=== PATIENT | female | born 1980 | race African-American/Black ===

== ENCOUNTER 2016-10-15 13:50 | Inpatient (IN) | payer OTHER ==
[2016-10-15 15:26] VITALS: BMI 30.7
[2016-10-15] MEDS ORDERED: ELECTROLYTE-148 SOLN 1,000 ML IV SCH ×2 (15:30→18:00)
[2016-10-15] MEDS ORDERED: AMPICILLIN - 100 ML IVPB ONE (15:30)
[2016-10-15 16:46] LABS: BASOPHIL 0.2 % (0-2.0); EOSINOPHIL 0.4 % (0-4.5); MCH 26.5 pg (25.7-33.7); MCHC 33.9 g/dl (32.0-36.0); MEAN CELL VOLUME 78.4 fl (80-96); MEAN PLT VOLUME 8.6 fl (7.5-11.1); NEUTROPHILS 80.2 % (42.8-82.8); PLATELET COUNT 271 K/MM3 (134-434); RDW 16.4 % (11.6-15.6); WHITE BLOOD COUNT 10.8 K/mm3 (4.0-10.0)
[2016-10-15 16:59] LABS: INR 0.94 (0.82-1.09); PROTHROMBIN TIME (PATIENT) 10.3 SEC (9.98-11.88)
[2016-10-15 17:02] LABS: ACTIVATED PTT 28.7 SECONDS (26.9-34.4)
[2016-10-15 17:26] LABS: ANION GAP 10 (8-16); CO2 25 mmol/L (21-32); CREATININE 0.7 mg/dL (0.55-1.02); GLUCOSE,RANDOM 64 mg/dL (74-106)
--- NOTE | 2016-10-15 18:03 | HP ---
Past Medical History - Admission History of Present Illness: 36 yo @ 38 3/7 wks by first trimester ultrasound, EDC 10/22/2016 complicated by: 1. Advanced maternal age - Wilmer negative for Trisomy 13, 18, 21 2. prediabetic / PCOS - on metformin 1000mg BID. not checking sugars 3. Sickle cell trait - partner denies testing 4. Hx/o asthma on albuterol PRN, last attack 03/2016 5. GBS positive - no penicillin allergy 6. hx/o PCOS, s/p ovulation induction with letrozole Patient presents with chief complaint of contractions that began at 1000. She reports movement denies leakage of fluid or vaginal bleeding. She presented to L&D and was found to be 3-4 cm. History Source: Patient Limitations to Obtaining History: No Limitations - Past Medical History Cardiovascular: No: HTN Pulmonary: Yes: Asthma ...: 2 ...Para: 0 ...Term: 0 ...: 0 ...Spon : 0 ...Induced : 1 ...Multiple Gestation: 0 ...LMP: 01/20/16 ... Weeks Gestation by Dates: 38.3 ...EDC by Dates: 10/26/16 Heme/Onc: Yes: Sickle Cell Trait. No: Anemia - Past Surgical History Past Surgical History: Yes: None Hx Myomectomy: No Hx Transabdominal Cerclage: No - Smoking History Smoking history: Never smoked Have you smoked in the past 12 months: No - Alcohol/Substance Use Hx Alcohol Use: No - Social History History of Recent Travel: No Home Medications - Allergies Allergies/Adverse Reactions: Allergies Allergy/AdvReac Type Severity Reaction Status Date / Time clindamycin AdvReac Intermediate Rash Verified 10/15/16 15:33 - Home Medications Home Medications: Ambulatory Orders Albuterol Sulfate Inhaler - [Ventolin HFA Inhaler -] 2 puff Q4H 10/15/16 Metformin HCl [Glucophage] 1,000 mg PO BID 10/15/16 Vit #108/Iron/FA [ One Tablet] 1 each PO DAILY 10/15/16 Family Disease History - Family Disease History Family History: Denies Review of Systems - Review of Systems Constitutional: reports: No Symptoms HENT: reports: No Symptoms Neck: reports: No Symptoms Cardiovascular: reports: No Symptoms Respiratory: reports: No Symptoms Gastrointestinal: reports: No Symptoms Genitourinary: reports: No Symptoms Musculoskeletal: reports: No Symptoms Neurological: reports: No Symptoms Endocrine: reports: No Symptoms Hematology/Lymphatic: reports: No Symptoms Psychiatric: reports: No Symptoms Physical Exam - Maternity Vital Signs: Vital Signs Temperature 98.7 F 10/15/16 15:11 Pulse Rate 67 10/15/16 16:00 Respiratory Rate 20 10/15/16 16:00 Blood Pressure 138/80 10/15/16 16:00 O2 Sat by Pulse Oximetry (%) Constitutional: Yes: Well Nourished, No Distress, Calm Neck: Yes: Supple Cardiovascular: Yes: Regular Rate and Rhythm Lungs: Clear to auscultation - Abdominal Exam/OB Fundal Height: 40 Number of Fetuses: Single Presentation: Vertex Contractions: Yes Regularity: Regular Intensity: Mod/Strong Monitor Mode: External Heart Rate (range): 130 Category: I Accelerations: Non-Uniform Decelerations: None - Vaginal Exam/OB Vaginal Bleediing: No Dilatation (cm): 4 Effacement (%): 100 Amniotic Membrane Status: Ruptured Amniotic Fluid: Yes: Meconium Stained Meconium: Light Presentation: Vertex/Position Station: -2 - Physical Exam Edema: No Psychiatric: Yes: Alert, Oriented - Labs Lab Results: CBC, BMP 10/15/16 15:30 10/15/16 15:30 PNL- O positive, antibody negative, RPR NR, HIV negative, GBS positive, Rubella Immune Hemorrhage Risk Assessment - Risk Factors Medium Risk Factors: Yes: None High Risk Factors: Yes: None Risk Score: 1 Risk Level: Medium Risk Assessment/Plan 36 yo @ 38 3/7 wks active labor 1. Admit to L&D 2. Consents reviewed and signed 3. GBS positive - ampicillin per protocol 4. Prediabetic / PCOS. No need for glucose checks 5. Will offer pain medication upon patient request 6. Will proceed with expectant management, anticipate vaginal delivery.
[2016-10-15] MEDS ORDERED: PROMETHAZINE HCL 25 MG/1 ML VIAL IVPUSH ONE (18:43)
[2016-10-15] MEDS ORDERED: BUTORPHANOL TARTRATE 1 MG/ML VIAL IVPUSH ONE (18:43)
--- NOTE | 2016-10-15 18:45 | PN ---
Ante-Partal Exam - Subjective Subjective: Pain with contractions Vital Signs: Vital Signs Temperature 98.6 F 10/15/16 18:00 Pulse Rate 67 10/15/16 18:00 Respiratory Rate 20 10/15/16 18:00 Blood Pressure 139/88 10/15/16 18:00 O2 Sat by Pulse Oximetry (%) Bleeding: No Headache: No Visual changes: No Right upper quadrant pain: No - Contractions Contractions: Yes Regularity: Regular Intensity: Mod/Strong Monitor Mode: External - Exam during Labor Heart Rate: 130 Variability: Moderate Category: I Monitor Accelerations: Absent Monitor Decelerations: None Exam: Vaginal Dilatation (cm): 4 Effacement (%): 100 Amniotic Membrane Status: Ruptured Amniotic Fluid: Meconium Stained Meconium Staining: Light Station: -1 - Intrapartum Hemorrhage Risk Medium Risk Factors: None High Risk Factors: None Risk Score: 0 Risk Level: Low Risk - Assessment/Plan Assessment/Plan: 36 yo active labor 1. Category I FHT 2. Patient desires IV medication for pain control 3. Will proceed with expectant management
[2016-10-15] MEDS: AMPICILLIN - 1 GM in SODIUM CHLORIDE 100 ML IVPB SCH (19:30)
[2016-10-15] MEDS ORDERED: ONDANSETRON 4 MG/2 ML VIAL IVPB PRN (20:14)
[2016-10-15 20:19] LABS: ARTERIAL BLD GAS O2 SATURATION 57.2 % (90-98.9); ARTERIAL BLOOD GAS BASE EXCESS -3.2 meq/l (-2-2); ARTERIAL BLOOD GAS HCO3 24.1 meq/L (22-26); ARTERIAL BLOOD GAS PO2 27.9 mmHg (80-100)
[2016-10-15 20:20] LABS: LPM/O2% 21%; PT. ON O2? NO; TYPE OF O2 ROOM AIR
[2016-10-15 20:21] LABS: ARTERIAL BLOOD GAS pH 7.27 (7.35-7.45)
[2016-10-15 20:23] LABS: ARTERIAL BLD GAS O2 SATURATION 37.1 % (90-98.9); ARTERIAL BLOOD GAS HCO3 25.3 meq/L (22-26); ARTERIAL BLOOD GAS PO2 21.4 mmHg (80-100)
[2016-10-15 20:24] LABS: LPM/O2% 21%; PT. ON O2? NO; TYPE OF O2 ROOM AIR
[2016-10-15 20:25] LABS: ARTERIAL BLOOD GAS pH 7.24 (7.35-7.45)
[2016-10-15] MEDS ORDERED: oxyCODONE HCL 5 MG TABLET PO PRN (21:49)
[2016-10-15] MEDS ORDERED: METHYLERGONOVINE MALEATE 0.2 MG/1 ML AMP IM PRN (21:49)
[2016-10-15] MEDS ORDERED: IBUPROFEN 800 MG/8 ML IJ IVPB PRN (21:49)
--- NOTE | 2016-10-15 21:49 | PN ---
Progress Note (short form) - Note Progress Note: Late entry note: heart rate deceleration noted to 50 bpm Maternal position changed to L lateral and R lateral, o2 via facemask given Patient examined, found to be 4 cm FSE placed, FH noted at 80 bpm Decision made to proceed with delivery Patient consent obtained, all questions reviewed. Notified anesthesia and nursing staff, patient brought emergently to OR FH by doppler noted to be 140s in OR
--- NOTE | 2016-10-15 21:58 | PN ---
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
[2016-10-15] MEDS ORDERED: D5W-LR W/ 20 UNITS OXYTOCIN 1,000 ML IV SCH (22:00)
--- NOTE | 2016-10-16 00:53 | OP ---
DATE OF OPERATION: 10/15/2016 PREOPERATIVE DIAGNOSIS: Intrauterine at 38 weeks, nonreassuring tracing. POSTOPERATIVE DIAGNOSIS: Intrauterine at 38 weeks, nonreassuring tracing. SURGERY: Primary low transverse delivery via Pfannenstiel skin incision. SURGEON: Joi Gordon MD MINI SHIFTER: Bhavana Painting DO ANESTHESIOLOGIST: Barrera Gorman MD ANESTHESIA: Spinal epidural. SPECIMEN SENT: Placenta, blood gasses, and cord blood. FINDINGS: Female , LOT position, 7,7, Wt 8-2, 19.6 inches INDICATIONS: Patient is a 36-year-old 2, para 0, who presented in labor. She was found to have a prolonged deceleration and the decision was made to proceed emergently to delivery. She was noted to have normal heart tone of 140s in the operating room and the decision was made for spinal anesthesia. PROCEDURE: Patient was prepped and draped in the normal sterile fashion. Placed in the dorsal supine position with leftward tilt. Approximately an 11-cm skin incision was made approximately 2 cm above the suprapubic symphysis. The incision was made and carried down to the underlying rectus fascia using the Bovie electrocautery. Fascia was nicked in the midline and extended laterally using Lewis scissors. Attention was brought to the inferior portion, which was tented up using Sally clamps and dissected off of the underlying rectus muscles using Lewis scissors. Attention was brought to the superior portion where, in a similar fashion, it was tented up using Sally clamps and dissected off of the underlying rectus muscles using Lewis scissors. Rectus muscles were in the midline. Peritoneum was entered sharply. Peritoneal incision was extended superiorly and inferiorly using Metzenbaum scissors. The vesicouterine peritoneum was identified and entered sharply. Bladder flap was created digitally. Hysterotomy was performed. Meconium fluid was noted. 's head was brought to the hysterotomy site, followed by the shoulders and body without difficulty. The 's cord was clamped and cut. The infant was handed to the awaiting NICU staff. Cord blood and cord gasses were collected and sent. Placenta was manually extracted. The uterus was cleared of all clots and debris. The uterus was closed using 0 Biosyn in a running fashion with the 2nd layer being an imbricated layer. The vesicouterine peritoneum was reapproximated. Good hemostasis was noted. The gutters were cleared of all clots and debris. The bilateral fallopian tubes and ovaries were identified and found to be normal appearing. The peritoneum was closed using 2-0 Biosyn in an interrupted fashion. The rectus muscles were reapproximated using 0 Biosyn interrupted fashion. The fascia was closed using 0 Vicryl in a running fashion. The subcutaneous fat was closed using 2-0 Vicryl in a running fashion. The skin was reapproximated using 3-0 Vicryl. Patient tolerated the procedure well. Estimated blood loss was 600 mL. Patient was brought to the recovery room in stable condition. Kleber [id number] MTDD
[2016-10-16] MEDS: AMPICILLIN - 1 GM in SODIUM CHLORIDE 100 ML IVPB SCH (00:59)
--- NOTE | 2016-10-16 01:55 | PN ---
Post Progress Note - Subjective Subjective: Patient without acute complaints. Currently NPO, + yadav with clear urine. no flatus yet, no ambulation yet. Denies fevers or chills. Pain well controlled. Desires to breastfeed, baby in nursery Post Day: 1 Type of Delivery: Primary C/S Vital Signs: Vital Signs Temperature 98.1 F 10/15/16 22:30 Pulse Rate 95 H 10/15/16 22:30 Respiratory Rate 18 10/16/16 00:40 Blood Pressure 139/86 10/15/16 22:30 O2 Sat by Pulse Oximetry (%) 98 10/15/16 21:30 Breast Exam: Yes: Soft Uterus: Yes: Fundus Firm, Fundus below umbilicus Incision: Yes: Dressing dry and intact Abdomen/GI: Yes: Abdomen soft, Passing flatus, Tolerating PO. No: Tender Lochia: Yes: Serosa Lochia, amount: Small Extremities: Yes: Calves non-tender. No: Edema - Labs Labs: CBC WBC 10.8 K/mm3 (4.0-10.0) H 10/15/16 15:30 RBC 4.49 M/mm3 (3.60-5.2) 10/15/16 15:30 Hgb 11.9 GM/dL (10.7-15.3) 10/15/16 15:30 Hct 35.2 % (32.4-45.2) 10/15/16 15:30 MCV 78.4 fl (80-96) L 10/15/16 15:30 MCH 26.5 pg (25.7-33.7) 10/15/16 15:30 MCHC 33.9 g/dl (32.0-36.0) 10/15/16 15:30 RDW 16.4 % (11.6-15.6) H 10/15/16 15:30 Plt Count 271 K/MM3 (134-434) 10/15/16 15:30 MPV 8.6 fl (7.5-11.1) 10/15/16 15:30 Neutrophils % 80.2 % (42.8-82.8) 10/15/16 15:30 Lymphocytes % 10.9 % (8-40) 10/15/16 15:30 Monocytes % 8.3 % (3.8-10.2) 10/15/16 15:30 Eosinophils % 0.4 % (0-4.5) 10/15/16 15:30 Basophils % 0.2 % (0-2.0) 10/15/16 15:30 Laboratory Tests 10/16/16 07:45 WBC 15.0 H D Hgb 10.9 Hct 32.8 Plt Count 238 Assessment/Plan 36 yo POD # 1 s/p primary CD, afebrile, vital signs stable, doing well 1. Continue routine postoperative care. 2. AM CBC without signs of anemia. 3. Rh positive status, no rhogam indicated. 4. Encourage ambulation and incentive spirometer use 5. DC yadav today 6. Elevated WBC, plan to repeat and monitor for signs of infection 7. Anticipate discharge home postoperative day #3 or #4
[2016-10-16 08:38] LABS: BASOPHIL 0.3 % (0-2.0); EOSINOPHIL 0.3 % (0-4.5); MCH 26.2 pg (25.7-33.7); MCHC 33.3 g/dl (32.0-36.0); MEAN CELL VOLUME 78.7 fl (80-96); MEAN PLT VOLUME 8.1 fl (7.5-11.1); NEUTROPHILS 81.3 % (42.8-82.8); PLATELET COUNT 238 K/MM3 (134-434); RDW 16.3 % (11.6-15.6)
--- NOTE | 2016-10-16 11:04 | PN ---
Progress Note (short form) - Note Progress Note: Anesthesiology Post-op POD#1 s/p emergent C/S under spinal anesthesia. Pt. feeling well, states that pain is controlled with medication. Denies h/a. She is able to move her legs without difficulty but has not gotten OOB yet and has yadav in place; yadav actively draining. VSS.
[2016-10-16] MEDS: IBUPROFEN 600 MG TABLET (FP) PO PRN ×2 (16:01→22:47)
[2016-10-16] MEDS: ACETAMINOPHEN 325 MG TABLET (FP) PO PRN ×2 (16:02→22:48)
[2016-10-16] MEDS: oxyCODONE HCL 5 MG TABLET PO PRN ×2 (16:02→22:46)
[2016-10-16] MEDS: SIMETHICONE 80 MG TAB.CHEW (FP) PO PRN ×2 (16:03→22:46)
[2016-10-16] MEDS ORDERED: BISACODYL 10 MG SUPP.RECT RC PRN (21:49)
[2016-10-17] MEDS ORDERED: DIPHTH,PERTUSS(ACELL),TET 0.5 ML DISP.SYRIN IM ONE (10:00)
[2016-10-17] MEDS: oxyCODONE HCL 5 MG TABLET PO PRN ×3 (10:09→21:58)
[2016-10-17] MEDS: ACETAMINOPHEN 325 MG TABLET (FP) PO PRN (10:11)
[2016-10-17] MEDS: SIMETHICONE 80 MG TAB.CHEW (FP) PO PRN ×3 (10:12→21:56)
--- NOTE | 2016-10-17 14:41 | PN ---
Progress Note (short form) - Note Progress Note: pod 2 s/p c/s doing well, ambulating CBC, BMP 10/16/16 07:45 10/15/16 15:30 Last Vital Signs Temp Pulse Resp BP Pulse Ox 97.9 F 85 18 123/88 98 10/16/16 21:00 10/16/16 21:00 10/16/16 21:00 10/16/16 21:00 10/15/16 21:30 abdomen soft, non tender,no distension , no cva incision dry, clean no calf tenderness plan ambulate cbc in am
[2016-10-17] MEDS: IBUPROFEN 600 MG TABLET (FP) PO PRN ×2 (17:27→21:56)
[2016-10-18] MEDS: SIMETHICONE 80 MG TAB.CHEW (FP) PO PRN ×2 (06:51→19:49)
[2016-10-18] MEDS: oxyCODONE HCL 5 MG TABLET PO PRN (06:51)
[2016-10-18] MEDS: IBUPROFEN 600 MG TABLET (FP) PO PRN (06:52)
[2016-10-18 08:00] LABS: BASOPHIL 0.3 % (0-2.0); MCH 26.5 pg (25.7-33.7); MCHC 33.6 g/dl (32.0-36.0); MEAN CELL VOLUME 78.8 fl (80-96); MEAN PLT VOLUME 8.2 fl (7.5-11.1); NEUTROPHILS 76.2 % (42.8-82.8); PLATELET COUNT 248 K/MM3 (134-434); RDW 16.4 % (11.6-15.6); WHITE BLOOD COUNT 14.5 K/mm3 (4.0-10.0)
[2016-10-18] MEDS: ACETAMINOPHEN 325 MG TABLET (FP) PO PRN (19:49)
--- NOTE | 2016-10-18 21:47 | PN ---
Post Progress Note - Subjective Subjective: No complaints. Doing well. Post Day: 3 Type of Delivery: Primary C/S Vital Signs: Vital Signs Temperature 98.5 F 10/18/16 10:00 Pulse Rate 82 10/18/16 10:00 Respiratory Rate 18 10/18/16 10:00 Blood Pressure 118/80 10/18/16 10:00 O2 Sat by Pulse Oximetry (%) 98 10/15/16 21:30 Breast Exam: Yes: Soft Uterus: Yes: Fundus Firm, Fundus below umbilicus Incision: Yes: Sutures intact Abdomen/GI: Yes: Abdomen soft, Passing flatus, Tolerating PO Lochia: Yes: Rubra Lochia, amount: Small Extremities: Yes: Calves non-tender, Edema (trace b/l) Perineum: Yes: Intact Activity: Ambulating - Labs Labs: CBC WBC 14.5 K/mm3 (4.0-10.0) H 10/18/16 06:00 RBC 3.89 M/mm3 (3.60-5.2) 10/18/16 06:00 Hgb 10.3 GM/dL (10.7-15.3) L 10/18/16 06:00 Hct 30.6 % (32.4-45.2) L 10/18/16 06:00 MCV 78.8 fl (80-96) L 10/18/16 06:00 MCH 26.5 pg (25.7-33.7) 10/18/16 06:00 MCHC 33.6 g/dl (32.0-36.0) 10/18/16 06:00 RDW 16.4 % (11.6-15.6) H 10/18/16 06:00 Plt Count 248 K/MM3 (134-434) 10/18/16 06:00 MPV 8.2 fl (7.5-11.1) 10/18/16 06:00 Neutrophils % 76.2 % (42.8-82.8) 10/18/16 06:00 Lymphocytes % 12.7 % (8-40) D 10/18/16 06:00 Monocytes % 7.8 % (3.8-10.2) 10/18/16 06:00 Eosinophils % 3.0 % (0-4.5) D 09/09/17 06:00 Basophils % 0.3 % (0-2.0) 10/18/16 06:00 Assessment/Plan 26yo P1, POD#3 s/p primary LT C/S, doing well stable, afebrile. Asymptomatic for s/sx's of anemia care instructions reviewed. Continue routine postop care. Ambulation encouraged.
[2016-10-19] MEDS: ACETAMINOPHEN 325 MG TABLET (FP) PO PRN ×2 (06:54→14:43)
[2016-10-19] MEDS: IBUPROFEN 600 MG TABLET (FP) PO PRN ×2 (06:54→14:44)
[2016-10-19] MEDS: SIMETHICONE 80 MG TAB.CHEW (FP) PO PRN ×2 (06:55→14:43)
--- NOTE | 2016-10-19 11:07 | PN ---
Post Progress Note - Subjective Subjective: No complaints Post Day: 4 Type of Delivery: Primary C/S Vital Signs: Vital Signs Temperature 99.1 F 10/18/16 22:00 Pulse Rate 93 H 10/18/16 22:00 Respiratory Rate 18 10/18/16 22:00 Blood Pressure 132/87 10/18/16 22:00 O2 Sat by Pulse Oximetry (%) 98 10/15/16 21:30 Breast Exam: Yes: Soft Uterus: Yes: Fundus Firm, Fundus below umbilicus, Non-tender Incision: Yes: Sutures intact Abdomen/GI: Yes: Abdomen soft, Passing flatus, Tolerating PO Lochia: Yes: Rubra Lochia, amount: Small Extremities: Yes: Calves non-tender Perineum: Yes: Intact Activity: Ambulating - Labs Labs: CBC WBC 14.5 K/mm3 (4.0-10.0) H 10/18/16 06:00 RBC 3.89 M/mm3 (3.60-5.2) 10/18/16 06:00 Hgb 10.3 GM/dL (10.7-15.3) L 10/18/16 06:00 Hct 30.6 % (32.4-45.2) L 10/18/16 06:00 MCV 78.8 fl (80-96) L 10/18/16 06:00 MCH 26.5 pg (25.7-33.7) 10/18/16 06:00 MCHC 33.6 g/dl (32.0-36.0) 10/18/16 06:00 RDW 16.4 % (11.6-15.6) H 10/18/16 06:00 Plt Count 248 K/MM3 (134-434) 10/18/16 06:00 MPV 8.2 fl (7.5-11.1) 10/18/16 06:00 Neutrophils % 76.2 % (42.8-82.8) 10/18/16 06:00 Lymphocytes % 12.7 % (8-40) D 10/18/16 06:00 Monocytes % 7.8 % (3.8-10.2) 10/18/16 06:00 Eosinophils % 3.0 % (0-4.5) D 10/18/16 06:00 Basophils % 0.3 % (0-2.0) 10/18/16 06:00 Assessment/Plan 26yo P1, POD#4 s/p primary LT C/S, doing well stable, afebrile. Asymptomatic for s/sx's of anemia care instructions reviewed. Continue routine postop care. Ambulation encouraged.
[2016-10-19 11:49] VITALS: BP 134/89; PULSE 82; TEMP 98.1
--- NOTE | 2016-10-20 09:44 | DS ---
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 Vital Signs: Vital Signs Temperature 98.1 F 10/19/16 10:00 Pulse Rate 82 10/19/16 10:00 Respiratory Rate 18 10/19/16 10:00 Blood Pressure 134/89 10/19/16 10:00 O2 Sat by Pulse Oximetry (%) 98 10/15/16 21:30 Labs: CBC, BMP 10/18/16 06:00 10/15/16 15:30 Delivery - Delivery Section: Primary Type of Anesthesia: Spinal Episiotomy/Laceration: None EBL (cc): 600 Delivery, Single - Stages of Labor Date 1st Stage Initiatied: 10/15/16 Time 1st Stage Initiated: 10:00 Date of Delivery: 10/15/16 Time of Delivery: 19:44 Time Placenta Delivered: 18:45 - Condition of 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 Name: Darcie Langley Infant Gender: Female Weight: 8 lb 2 oz Position: Left, OT Total Hours ROM (Hrs/Mins): 2 hrs - 1 Minute Total Score: 7 5 Minutes Total Score: 7 10 Minutes Total Score: 9 - [place] Feeding Plan Initial Plan: Exclusive throughout hospitalization Discharge Summary Procedures: Principal: delivery Hospital Course: she was admitted in labor, had a prolonged deceleration which resulted in a primary delivery She remained afebrile, vital signs stable for discharge home POD #4 Condition: Good - Instructions Diet, Activity, Other Instructions: Physical activity Resume your normal everyday activity as tolerated no heavy lifting or exercise until seen by your surgeon. You may walk unlimited zuleima of and climb stairs. You may resume driving the car when you feel safe and comfortable behind the wheel. No sexual activity as instructed. Wound care If you have a bandage, leave it on, and keep dry for 48-72 hours. After that time discard the outer bandage. If they are tapes on the skin under the out of bandage leave them in place. They will peel off in the next 7 to 10 days. Do Not Peel them off. You may shower the day after surgery. If there are tapes present on the skin, you may shower over them. Diet There are no dietary restrictions. Eat healthy, high-fiber foods. Drink 6 to 8 glasses of liquid each day. This will assist in keeping your bowels are regular. Pain management You may take Tylenol or acetaminophen or Ibuprofen (for example, Motrin, Advil etc.) from my pain prescription medication is ordered should be taken as prescribed for moderate to severe pain. Call MD for any of the following: Severe pain not relieved by medication Fever of 101 or higher Excessive bleeding or drainage on dressing Inability to urinate Referrals: Hosea Rollins MD [Staff Physician] - Disposition: HOME - Home Medications Comprehensive Discharge Medication List: Ambulatory Orders Albuterol Sulfate Inhaler - [Ventolin HFA Inhaler -] 2 puff Q4H 10/15/16 Metformin HCl [Glucophage] 1,000 mg PO BID 10/15/16 Vit #108/Iron/FA [ One Tablet] 1 each PO DAILY 10/15/16
--- NOTE | 2016-10-20 12:37 | PATH ---
Surgical Pathology Report Patient Name: MOHAN VEGA Med. Rec. 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 Electronically Signed Luis Aldana M.D. Gross Description The specimen is received fresh labeled placenta and is a 389 gram, 16.0 x 15.0 x 2.0 cm. placenta with attached membranes and umbilical cord. The attached membranes are greene green, meconium stained, translucent with focal opacities and insert marginally. The umbilical cord measures 23 cm. in length and averages 1 cm. in diameter. The cord inserts eccentrically, 2 cm. to the nearest margin. No true knots or strictures are identified. Cut surface of the umbilical cord reveals 3 vessels. The surface is garcia green, meconium stained with minimal fibrin deposition and appropriate caliber vessels. The maternal surface is red-brown with focal defects. Sectioning reveals red-brown, spongy parenchyma. No lesions are identified. Waste Management Specialist sections are submitted in three cassettes as follows: 1- membrane rolls and umbilical cord; 2-3- full thickness sections of placenta. 10/17/2016 [facility] [place]10/17/2016
== END 2016-10-19 14:45 | disposition home or self-care (01) | DRG 766 ==
LOC: JDEL 13:50 → JLDR 14:45 → J3W 22:28
PROVIDERS: ADMIT Obstetrics & Gynecology; ATTEND Obstetrics & Gynecology
PROC: 10D00Z1 Extraction of Products of Conception, Low, Open Approach (ICD-10-PCS; principal; 2016-10-15)
DX: O76 Abnormality in fetal heart rate and rhythm complicating labor and delivery (principal); O99.02 Anemia complicating childbirth; O99.824 Streptococcus B carrier state complicating childbirth; O99.89 Other specified diseases and conditions complicating pregnancy, childbirth and the puerperium; D57.3 Sickle-cell trait; R73.03 Prediabetes; Z3A.38 38 weeks gestation of pregnancy; Z37.0 Single live birth
CPT/HCPCS: 36415; 36600; 80048; 82803; 85025; 85610; 85730; 86593; 86850; 86900; 86901; 88307-TC

== ENCOUNTER 2023-04-21 04:13 | Day surgery (SDC) | payer OTHER ==
[2023-04-15 11:28] VITALS: BMI 29.2
[2023-04-21 10:28] LABS: HEMATOCRIT 36.4 % (32.4-45.2); HEMOGLOBIN 12.2 GM/dL (10.7-15.3); MCH 24.9 pg (25.7-33.7); MCHC 33.5 g/dl (32.0-36.0); MEAN CELL VOLUME 74.2 fl (80-96); MEAN PLT VOLUME 7.7 fl (7.5-11.1); PLATELET COUNT 325 10^3/uL (134-434); RBC 4.91 M/mm3 (3.60-5.2); RDW 20.2 % (11.6-15.6); WHITE BLOOD COUNT 7.4 K/mm3 (4.0-10.0)
[2023-04-21] MEDS ORDERED: MIDAZOLAM HCL 2 MG/2 ML SINGLE DOSE VIAL ONE (10:56)
[2023-04-21] MEDS ORDERED: PROPOFOL 20 ML ONE (10:56)
[2023-04-21] MEDS ORDERED: IBUPROFEN 800 MG/8 ML IJ IVPB PRN (11:01)
[2023-04-21] MEDS ORDERED: ONDANSETRON 4 MG/2 ML VIAL IVPUSH PRN (11:01)
[2023-04-21] MEDS ORDERED: oxyCODONE HCL 5 MG TABLET PO PRN (11:01)
[2023-04-21] MEDS ORDERED: IBUPROFEN 600 MG TABLET (FP) PO PRN (11:01)
[2023-04-21] MEDS ORDERED: ELECTROLYTE-148 SOLN 1,000 ML IV SCH (11:15)
[2023-04-21] MEDS ORDERED: LACTATED RINGERS SOLUTION 1,000 ML IV SCH ×2 (11:45→13:00)
[2023-04-21 13:35] VITALS: RESP 16
[2023-04-21 14:39] VITALS: BP 142/85; PULSE 98; TEMP 97.7
== END 2023-04-21 14:15 | disposition home or self-care (01) ==
LOC: JASU-SURG 04:13
PROVIDERS: ATTEND Obstetrics & Gynecology
PROC: 10D18ZZ Extraction of Products of Conception, Retained, Via Natural or Artificial Opening Endoscopic (ICD-10-PCS; principal; 2023-04-21 11:00)
DX: O03.4 Incomplete spontaneous abortion without complication (principal); N84.0 Polyp of corpus uteri
CPT/HCPCS: 36415; 82962; 85027; 86850; 86900; 86901; 88305-TC; 94760